=== PATIENT | female | born 1950 | race African-American/Black ===

== ENCOUNTER 2020-03-18 20:57 | Emergency (ER) | payer MEDICARE ==
[~2020-03-18] VITALS: Ht 165.1 cm; Wt 136.1 kg
[2020-03-18] MEDS ORDERED: ALBUTEROL SULFATE HFA 8GM INHALATION AEROSOL INH ONE (21:45)
--- NOTE | 2020-03-18 21:50 | Emergency Department Note ---
History of Present Illnes History of Present Illness Chief Complaint: COVID PUI History of Present Illness This is a 69 year old female WITH H/O COPD SECONDARY TO SECOND HAND SMOKE EXPOSURE PRESENTS TO ED WITH SOBAND PRODUCTIVE COUGH WITH YELLOW/WHITE SPUTUM X2-3 DAYS, SPO2 100% RA, RESP ARE EVEN AND UNLABORED. Historian: Patient Onset (how long ago): day(s) (3) Location: CHEST Quality: SOB, PRODUCTIVE COUGH Radiation: Reports non-radiation Severity: mild Onset quality: gradual Duration (how long): day(s) (3) Timing of current episode: constant Progression: unchanged Chronicity: recurrent Context: Denies recent illness, Denies recent surgery, Denies trauma/injury Relieving factors: none Exacerbating factors: none Past Medical/Family History Physician Review I have reviewed the patient's past medical and family history. Any updates have been documented here. Past Medical History Past Medical History: Hypertension, Diabetes, COPD Social History Smoking Cessation: Never Smoker Alcohol Use: None Any Illegal Drug Use: No Family History Family history of heart diseas: No Review of Systems Review of Systems Constitutional: Reports no symptoms EENTM: Reports no symptoms Cardiovascular: Reports no symptoms Respiratory: Reports as per HPI Gastrointestinal: Reports no symptoms Genitourinary: Reports no symptoms Musculoskeletal: Reports no symptoms Integumentary: Reports no symptoms Neurological: Reports no symptoms Psychological: Reports no symptoms Endocrine: Reports no symptoms Hematological/Lymphatic: Reports no symptoms Physical Exam Related Data Allergies: Coded Allergies: codeine (Verified Allergy, Intermediate, 03/18/20) Vital signs reviewed: Yes Physical Exam CONSTITUTIONAL Constitutional: Present well-developed, Present well-nourished, Present morbidly obese; Absent distressed HENT HENT: Present normocephalic, Present atraumatic, Present oropharynx clear/moist, Present nose normal HENT L/R: Present left ext ear normal, Present right ext ear normal EYES Eyes: Reports PERRL, Reports conjunctivae normal NECK Neck: Present ROM normal PULMONARY Pulmonary: Present effort normal, Present other (WHEEZING AT BASES BILATERAL); Absent respiratory distress, Absent rales, Absent rhonchi CARDIOVASCULAR Cardiovascular: Present regular rhythm, Present heart sounds normal, Present capillary refill normal, Present tachycardia (102) GASTROINTESTINAL Abdominal: Present soft, Present nontender, Present bowel sounds normal GENITOURINARY Genitourinary: Present exam deferred SKIN Skin: Present warm, Present dry MUSCULOSKELETAL Musculoskeletal: Present ROM normal NEUROLOGICAL Neurological: Present alert, Present oriented x 3, Present no gross motor or sensory deficits PSYCHOLOGICAL Psychological: Present mood/affect normal, Present judgement normal Results Laboratory Laboratory Laboratory Tests Test 03/18/20 21:57 White Blood Count 7.73 x10e3/uL (4.8-10.8) Red Blood Count 4.95 x10e6/uL (3.6-5.1) Hemoglobin 11.9 g/dL (12.0-16.0) Hematocrit 38.5 % (34.2-44.1) Mean Corpuscular Volume 77.8 fL (81-99) Mean Corpuscular Hemoglobin 24.0 pg (28-32) Mean Corpuscular Hemoglobin Concent 30.9 g/dL (31-35) Red Cell Distribution Width 18.1 % (11.7-14.4) Platelet Count 329 x10e3/uL (140-360) Neutrophils (%) (Auto) 50.1 % (38.7-80.0) Lymphocytes (%) (Auto) 28.5 % (18.0-39.1) Monocytes (%) (Auto) 13.6 % (4.4-11.3) Eosinophils (%) (Auto) 6.7 % (0.0-6.0) Basophils (%) (Auto) 0.6 % (0.0-1.0) Neutrophils # (Auto) 3.9 (2.1-6.9) Lymphocytes # (Auto) 2.2 (1.0-3.2) Monocytes # (Auto) 1.1 (0.2-0.8) Eosinophils # (Auto) 0.5 (0.0-0.4) Basophils # (Auto) 0.1 (0.0-0.1) Absolute Immature Granulocyte (auto 0.04 x10e3/uL (0-0.1) Sodium Level 141 mmol/L (136-145) Potassium Level 4.4 mmol/L (3.5-5.1) Chloride Level 103 mmol/L (98-107) Carbon Dioxide Level 26 mmol/L (22-29) Anion Gap 16.4 mmol/L (8-16) Blood Urea Nitrogen 18 mg/dL (7-26) Creatinine 1.15 mg/dL (0.57-1.11) Estimat Glomerular Filtration Rate 56 ML/MIN (60-) BUN/Creatinine Ratio 16 (6-25) Glucose Level 135 mg/dL (74-118) Calcium Level 9.4 mg/dL (8.4-10.2) Total Bilirubin 0.2 mg/dL (0.2-1.2) Aspartate Amino Transf (AST/SGOT) 16 IU/L (5-34) Alanine Aminotransferase (ALT/SGPT) 14 IU/L (0-55) Alkaline Phosphatase 97 IU/L (40-150) Creatine Kinase 178 IU/L (29-168) Creatine Kinase MB 1.00 ng/mL (0-5.0) Troponin I 0.011 ng/mL (0-0.300) B-Type Natriuretic Peptide < 10.0 pg/mL (0-100) Total Protein 8.1 g/dL (6.5-8.1) Albumin 4.0 g/dL (3.5-5.0) Globulin 4.1 g/dL (2.3-3.5) Albumin/Globulin Ratio 1.0 (0.8-2.0) Lab results reviewed: Yes Imaging Imaging results reviewed: Yes Impressions Procedure: [id number] DX/CHEST SINGLE (PORTABLE) Exam Date: Exam Time: REPORT STATUS: Signed EXAMINATION: CHEST SINGLE (PORTABLE) INDICATION: SOB, WHEEZING COMPARISON: None FINDINGS: Underpenetration mildly limits examination. Diffuse hazy densities projecting over the lungs likely secondary to superimposed soft tissue attenuation. The heart is enlarged. Prominence of the central pulmonary vasculature. Otherwise, the pulmonary vessels are nondistended. No consolidation. No pleural effusion. No pneumothorax. IMPRESSION: Cardiomegaly with pulmonary vascular congestion. No overt edema or consolidation. Signed by: Kaylan Shaffer MD on 03/18/2020 10:33 PM Dictated By: KAYLAN SHAFFER MD 32 Transcribed By: ADALGISA on 03/18/202232 COPY TO: MEHRDAD ANDERSON MD~ Procedures 12 Lead ECG Interpretation ECG Interpretation : ECG: ECG 1 Television Presenter: Interpreted by ED physician Date: Mar 18, 2020 Time: 22:03 Rhythm: sinus rhythm Rate: normal BPM: 97 QRS axis: normal ST segments normal: Yes T waves normal: Yes Other findings: no other findings Clinical Impression: normal ECG Assessment & Plan Medical Decision Making MDM PT WITH COPD WITH C/O PRODUCTIVE COUGH AND SOB FOR 3 DAYS CBC, CMP, EKG, CARDIAC ENZYMES, CXR, BNP ORDERED TO EVAL FOR MYOCARDIAL INFARCTION, PNEUMONIA, PULMONARY EDEMA, LEUKOCYTOSIS, ELECTROLYTE ABNORMALITY ALBUTEROL INH 2 PUFFS ORDERED Assessment & Plan Final Impression: (1) COPD (chronic obstructive pulmonary disease) (2) Bronchitis Medications in the ED Albuterol 2 gm ONCE ONCE INH ; Start 03/18/20 at 21:45; Stop 03/18/20 at 21:47; Status DC MEHRDAD ANDERSON MD Mar 18, 2020 21:50
[2020-03-18 22:15] LABS: BASOPHILS # (AUTO) 0.1 (0.0-0.1); BASOPHILS % 0.6 % (0.0-1.0); EOSINOPHILS # (AUTO) 0.5 (0.0-0.4); EOSINOPHILS % 6.7 % (0.0-6.0); HEMATOCRIT 38.5 % (34.2-44.1); HEMOGLOBIN 11.9 g/dL (12.0-16.0); LYMPHOCYTES # (AUTO) 2.2 (1.0-3.2); LYMPHOCYTES % 28.5 % (18.0-39.1); MEAN CORPUSCULAR HGB CONC 30.9 g/dL (31-35); MEAN CORPUSCULAR VOLUME 77.8 fL (81-99); MONOCYTES # (AUTO) 1.1 (0.2-0.8); MONOCYTES % 13.6 % (4.4-11.3); NEUTROPHILS # (AUTO) 3.9 (2.1-6.9); NEUTROPHILS % 50.1 % (38.7-80.0); PLATELET COUNT 329 x10e3/uL (140-360); RED BLOOD COUNT 4.95 x10e6/uL (3.6-5.1); RED CELL DISTRIBUTION WIDTH 18.1 % (11.7-14.4)
[2020-03-18 22:35] LABS: ANION GAP 16.4 mmol/L (8-16); CALCIUM 9.4 mg/dL (8.4-10.2); CREATININE, SERUM 1.15 mg/dL (0.57-1.11); POTASSIUM 4.4 mmol/L (3.5-5.1)
--- NOTE | 2020-03-18 22:36 | Diagnostic Imaging Report ---
EXAMINATION: CHEST SINGLE (PORTABLE) INDICATION: SOB, WHEEZING COMPARISON: None FINDINGS: Underpenetration mildly limits examination. Diffuse hazy densities projecting over the lungs likely secondary to superimposed soft tissue attenuation. The heart is enlarged. Prominence of the central pulmonary vasculature. Otherwise, the pulmonary vessels are nondistended. No consolidation. No pleural effusion. No pneumothorax. IMPRESSION: Cardiomegaly with pulmonary vascular congestion. No overt edema or consolidation. Signed by: Victor Hugo Juan MD on 03/18/2020 10:33 PM
== END 2020-03-19 00:15 | disposition home or self-care (01) ==
LOC: ER 21:47
DX: R05 Cough (principal); J44.9 Chronic obstructive pulmonary disease, unspecified; J40 Bronchitis, not specified as acute or chronic; I10 Essential (primary) hypertension; E11.9 Type 2 diabetes mellitus without complications
CPT/HCPCS: 36415; 71045; 80053; 82550; 82553; 83880; 84484; 85025; 93005; 94664; 99283

== ENCOUNTER 2020-06-09 15:49 | Emergency (ER) | payer MEDICARE ==
[~2020-06-09] VITALS: Ht 165.1 cm; Wt 158.8 kg
[2020-06-09 16:49] LABS: BASOPHILS % 0.4 % (0.0-1.0); EOSINOPHILS # (AUTO) 0.3 (0.0-0.4); EOSINOPHILS % 3.1 % (0.0-6.0); HEMATOCRIT 36.6 % (34.2-44.1); HEMOGLOBIN 11.3 g/dL (12.0-16.0); LYMPHOCYTES # (AUTO) 2.5 (1.0-3.2); LYMPHOCYTES % 27.4 % (18.0-39.1); MEAN CORPUSCULAR HEMOGLOBIN 23.6 pg (28-32); MEAN CORPUSCULAR HGB CONC 30.9 g/dL (31-35); MEAN CORPUSCULAR VOLUME 76.4 fL (81-99); MONOCYTES # (AUTO) 0.7 (0.2-0.8); MONOCYTES % 7.8 % (4.4-11.3); NEUTROPHILS # (AUTO) 5.4 (2.1-6.9); NEUTROPHILS % 60.6 % (38.7-80.0); PLATELET COUNT 336 x10e3/uL (140-360); RED BLOOD COUNT 4.79 x10e6/uL (3.6-5.1); RED CELL DISTRIBUTION WIDTH 18.9 % (11.7-14.4)
[2020-06-09 16:53] LABS: CLARITY,URINE SL CLOUDY (CLEAR); COLOR,URINE YELLOW (YELLOW); KETONES,URINE NEGATIVE (NEGATIVE); LEUKOCYTE ESTERASE ,URINE TRACE (NEGATIVE); NITRITE,URINE NEGATIVE (NEGATIVE); PROTEIN,URINE DIPSTICK NEGATIVE (NEGATIVE); URINE UROBILINOGEN 0.2 mg/dL (0.2 - 1)
[2020-06-09 17:04] LABS: BACTERIA,URINE MANY /HPF; EPITHELIAL CELLS,URINE MODERATE /LPF; RBC,URINE 0-5 /HPF (0-5)
[2020-06-09 17:08] LABS: ALANINE AMINOTRANSFERASE 15 IU/L (0-55); ALBUMIN 3.5 g/dL (3.5-5.0); ALBUMIN/GLOBULIN RATIO 0.7 (0.8-2.0); ALKALINE PHOSPHATASE 146 IU/L (40-150); ANION GAP 12.7 mmol/L (8-16); BLOOD UREA NITROGEN 13 mg/dL (7-26); BUN/CREATININE RATIO 13 (6-25); CALCIUM 9.1 mg/dL (8.4-10.2); CARBON DIOXIDE 29 mmol/L (22-29); CHLORIDE 99 mmol/L (98-107); CREATINE KINASE 125 IU/L (29-168); CREATININE, SERUM 0.97 mg/dL (0.57-1.11); EST GLOMERULAR FILTRATION RATE > 60 ML/MIN (60-); GLUCOSE 170 mg/dL (74-118); POTASSIUM 4.7 mmol/L (3.5-5.1); SODIUM 136 mmol/L (136-145)
[2020-06-09] MEDS ORDERED: HYDROCODONE/APAP 10MG-325MG TAB PO ONE (17:15)
[2020-06-09 19:32] VITALS: BP 104/56
== END 2020-06-09 20:30 | disposition home or self-care (01) ==
LOC: ER 18:03
DX: R10.32 Left lower quadrant pain (principal); M54.5 Low back pain; E11.65 Type 2 diabetes mellitus with hyperglycemia; I10 Essential (primary) hypertension; J44.9 Chronic obstructive pulmonary disease, unspecified; M06.9 Rheumatoid arthritis, unspecified; E66.01 Morbid (severe) obesity due to excess calories
CPT/HCPCS: 36415; 72131; 72192; 80053; 81001; 82550; 82553; 84484; 85025; 99284

== ENCOUNTER 2021-07-24 20:07 | Inpatient (IN) | payer MEDICARE ==
[~2021-07-24] VITALS: Ht 165.1 cm; Wt 133.8 kg
[2021-07-24] MEDS ORDERED: ASPIRIN 81 MG CHEW TAB PO ONE (21:00)
[2021-07-24 21:14] LABS: HEMATOCRIT 41.2 % (34.2-44.1); MEAN CORPUSCULAR HEMOGLOBIN 24.6 pg (28-32); MEAN CORPUSCULAR HGB CONC 31.6 g/dL (31-35); PLATELET COUNT 400 x10e3/uL (140-360); RED BLOOD COUNT 5.28 x10e6/uL (3.6-5.1); RED CELL DISTRIBUTION WIDTH 17.5 % (11.7-14.4)
[2021-07-24 21:27] LABS: ALBUMIN 2.8 g/dL (3.5-5.0); ALBUMIN/GLOBULIN RATIO 0.5 (0.8-2.0); CALCIUM 9.7 mg/dL (8.4-10.2); CREATININE, SERUM 1.06 mg/dL (0.57-1.11)
[2021-07-24] MEDS ORDERED: CEFTRIAXONE 1 GM in SODIUM CHLORIDE 0.9% 50ML 50 ML IV STA (21:38)
[2021-07-24] MEDS ORDERED: SODIUM CHLORIDE 0.9% 1000ML 1,000 ML IV STA (21:40)
[2021-07-24 21:44] LABS: B-TYPE NATRIURETIC PEPTIDE2 19.1 pg/mL (0-100)
[2021-07-24] MEDS ORDERED: DEXAMETHASONE SOD PHOS 10 MG/1 ML VIAL IV ONE (21:45)
[2021-07-24] MEDS ORDERED: ACETAMINOPHEN 325 MG TAB PO ONE (21:45)
[2021-07-24 21:47] LABS: CREATINE KINASE MB 1.3 ng/mL (0-5.0)
[2021-07-24 21:53] LABS: EOSINOPHILS % (MANUAL) 3 % (0-7); LYMPHOCYTES % (MANUAL) 24 % (19-48); MONOCYTES % (MANUAL) 23 % (3.4-9.0); NEUTROPHILS % (MANUAL) 49 % (40-74)
[2021-07-24 21:54] LABS: PLATELET ESTIMATE MODERATELY INCREASED; PLATELET MORPHOLOGY COMMENT NORMAL; RBC MORPHOLOGY COMMENT NORMAL
[2021-07-24 22:59] LABS: CLARITY,URINE CLOUDY (CLEAR); COLOR,URINE AMBER (YELLOW); KETONES,URINE TRACE (NEGATIVE); LEUKOCYTE ESTERASE ,URINE TRACE (NEGATIVE); NITRITE,URINE POSITIVE (NEGATIVE); PROTEIN,URINE DIPSTICK >=300 (NEGATIVE); URINE UROBILINOGEN >=8 mg/dL (0.2 - 1)
[2021-07-24 23:05] LABS: BACTERIA,URINE MANY /HPF; EPITHELIAL CELLS,URINE MODERATE /LPF
[2021-07-25] VITALS (10 sets, daily range): BP systolic 136–166; BP diastolic 59–93
[2021-07-25] MEDS: SODIUM CHLORIDE 0.9% 1000ML 1,000 ML IV SCH ×3 (02:43→17:37)
[2021-07-25 07:16] LABS: BASOPHILS % 0.2 % (0.0-1.0); HEMATOCRIT 39.1 % (34.2-44.1); HEMOGLOBIN 12.2 g/dL (12.0-16.0); LYMPHOCYTES # (AUTO) 1.3 (1.0-3.2); LYMPHOCYTES % 19.1 % (18.0-39.1); MEAN CORPUSCULAR HEMOGLOBIN 24.1 pg (28-32); MEAN CORPUSCULAR HGB CONC 31.2 g/dL (31-35); MEAN CORPUSCULAR VOLUME 77.3 fL (81-99); MONOCYTES # (AUTO) 0.1 (0.2-0.8); MONOCYTES % 1.8 % (4.4-11.3); NEUTROPHILS # (AUTO) 5.1 (2.1-6.9); NEUTROPHILS % 78.3 % (38.7-80.0); PLATELET COUNT 418 x10e3/uL (140-360); RED BLOOD COUNT 5.06 x10e6/uL (3.6-5.1); RED CELL DISTRIBUTION WIDTH 17.7 % (11.7-14.4)
[2021-07-25 07:35] LABS: ANION GAP 15.4 mmol/L (8-16); CALCIUM 9.2 mg/dL (8.4-10.2); CREATININE, SERUM 1.21 mg/dL (0.57-1.11); POTASSIUM 4.4 mmol/L (3.5-5.1)
[2021-07-25] MEDS ORDERED: DEXTROSE 50% SYRINGE 50 ML IV PRN ×2 (12:00→14:00)
[2021-07-25] MEDS: INSULIN REGULAR, HUMAN 100 UNIT/1 ML SQ SCH ×2 (13:24→21:22)
[2021-07-25] MEDS ORDERED: LISINOPRIL 10 MG TAB PO SCH (14:00)
[2021-07-25] MEDS ORDERED: REMDESIVIR 100MG 200 MG in SODIUM CHLORIDE 0.9% 100 ML IV ONE (14:15)
[2021-07-25] MEDS ORDERED: ACETAMINOPHEN 325 MG TAB PO PRN (15:30)
[2021-07-25 15:38] LABS: CREATINE KINASE MB 2.1 ng/mL (0-5.0)
[2021-07-25] MEDS: INSULIN LISPRO 100 UNIT/1 ML 3ML VIAL SQ SCH ×2 (17:00→21:00)
[2021-07-25] MEDS: RIVAROXABAN 20 MG TABLET PO SCH (17:37)
[2021-07-25] MEDS: ASCORBIC ACID 500 MG TAB PO SCH (17:37)
[2021-07-25] MEDS ORDERED: ALBUTEROL SULFATE HFA 8GM INHALATION AEROSOL INH PRN (17:45)
[2021-07-25] MEDS ORDERED: MAGNESIUM HYDROXIDE 30 ML UDC PO PRN (17:45)
[2021-07-25] MEDS ORDERED: NEURONTIN300 MG PO (20:32)
[2021-07-25] MEDS: GABAPENTIN 300 MG CAP PO SCH (21:20)
[2021-07-26] VITALS (8 sets, daily range): BP systolic 157–194; BP diastolic 71–89
[2021-07-26] MEDS ORDERED: METOPROLOL TART25 MG PO (04:24)
[2021-07-26] MEDS ORDERED: FAMOTIDINE20 MG PO (04:24)
[2021-07-26] MEDS ORDERED: BUSPIRONE HCL5 MG PO (04:24)
[2021-07-26] MEDS ORDERED: NITROGLYCERIN0.4 MG SL (04:24)
[2021-07-26] MEDS ORDERED: ATORVASTATIN CA20 MG PO (04:24)
[2021-07-26] MEDS ORDERED: FUROSEMIDE40 MG PO (04:24)
[2021-07-26] MEDS ORDERED: ALBUTEROL0.63 MG/3 NEB (04:24)
[2021-07-26] MEDS ORDERED: BREO ELLIPTA 11 EACH INH (04:24)
[2021-07-26] MEDS ORDERED: AMLODIPINE BESY10 MG PO (04:24)
[2021-07-26] MEDS ORDERED: LISINOPRIL10 MG PO (04:24)
[2021-07-26] MEDS ORDERED: POTASSIUM CHLO10 ME1 PO (04:24)
[2021-07-26 06:12] LABS: BASOPHILS % 0.1 % (0.0-1.0); HEMATOCRIT 37.8 % (34.2-44.1); HEMOGLOBIN 11.9 g/dL (12.0-16.0); LYMPHOCYTES # (AUTO) 1.5 (1.0-3.2); LYMPHOCYTES % 10.6 % (18.0-39.1); MEAN CORPUSCULAR HEMOGLOBIN 24.2 pg (28-32); MEAN CORPUSCULAR HGB CONC 31.5 g/dL (31-35); MONOCYTES # (AUTO) 0.9 (0.2-0.8); MONOCYTES % 6.3 % (4.4-11.3); NEUTROPHILS % 82.3 % (38.7-80.0); PLATELET COUNT 458 x10e3/uL (140-360); RED BLOOD COUNT 4.91 x10e6/uL (3.6-5.1); RED CELL DISTRIBUTION WIDTH 17.4 % (11.7-14.4)
[2021-07-26 06:36] LABS: ALBUMIN 2.4 g/dL (3.5-5.0); ALBUMIN/GLOBULIN RATIO 0.5 (0.8-2.0); ANION GAP 16.2 mmol/L (8-16); CALCIUM 8.7 mg/dL (8.4-10.2); CREATININE, SERUM 1.07 mg/dL (0.57-1.11); POTASSIUM 4.2 mmol/L (3.5-5.1)
[2021-07-26] MEDS: DEXAMETHASONE 4 MG TAB PO SCH (10:09)
[2021-07-26] MEDS: AZITHROMYCIN 250 MG TAB PO SCH (10:10)
[2021-07-26] MEDS: ZINC SULFATE 50 MG CAP PO SCH (10:10)
[2021-07-26] MEDS: ASCORBIC ACID 500 MG TAB PO SCH ×2 (10:10→16:48)
[2021-07-26] MEDS: GABAPENTIN 300 MG CAP PO SCH ×3 (10:10→20:34)
[2021-07-26] MEDS: DOCUSATE SODIUM 100 MG CAP PO SCH (10:10)
[2021-07-26] MEDS: INSULIN LISPRO 100 UNIT/1 ML 3ML VIAL SQ SCH ×4 (10:10→20:35)
[2021-07-26] MEDS: CEFTRIAXONE 1 GM in SODIUM CHLORIDE 0.9% 50ML 50 ML IV SCH (10:10)
[2021-07-26] MEDS: CHLORTHALIDONE 25 MG TAB PO SCH (12:19)
[2021-07-26] MEDS: LISINOPRIL 20 MG TAB PO SCH ×2 (12:19→16:48)
[2021-07-26] MEDS: REMDESIVIR 100MG 100 MG in SODIUM CHLORIDE 0.9% 100 ML IV SCH (13:43)
[2021-07-26] MEDS: SODIUM CHLORIDE 0.9% 1000ML 1,000 ML IV SCH (13:43)
[2021-07-26] MEDS: RIVAROXABAN 20 MG TABLET PO SCH (16:48)
[2021-07-26] MEDS ORDERED: ENOXAPARIN SOD INJ 40 MG/0.4 ML SYR SC SCH (17:00)
[2021-07-26] MEDS ORDERED: METOPROLOL TARTRATE 25 MG TAB PO ONE (20:45)
[2021-07-26] MEDS ORDERED: AMLODIPINE BESYLATE 10 MG TAB PO ONE (20:45)
[2021-07-27] VITALS (8 sets, daily range): BP systolic 149–176; BP diastolic 68–89
[2021-07-27 05:01] LABS: BASOPHILS % 0.2 % (0.0-1.0); HEMATOCRIT 37.3 % (34.2-44.1); HEMOGLOBIN 11.9 g/dL (12.0-16.0); LYMPHOCYTES # (AUTO) 1.6 (1.0-3.2); LYMPHOCYTES % 12.1 % (18.0-39.1); MEAN CORPUSCULAR HEMOGLOBIN 24.5 pg (28-32); MEAN CORPUSCULAR HGB CONC 31.9 g/dL (31-35); MEAN CORPUSCULAR VOLUME 76.9 fL (81-99); MONOCYTES # (AUTO) 1.1 (0.2-0.8); MONOCYTES % 8.4 % (4.4-11.3); NEUTROPHILS # (AUTO) 10.2 (2.1-6.9); NEUTROPHILS % 78.5 % (38.7-80.0); PLATELET COUNT 471 x10e3/uL (140-360); RED BLOOD COUNT 4.85 x10e6/uL (3.6-5.1); RED CELL DISTRIBUTION WIDTH 17.6 % (11.7-14.4)
[2021-07-27 05:27] LABS: ALBUMIN 2.5 g/dL (3.5-5.0); ALBUMIN/GLOBULIN RATIO 0.5 (0.8-2.0); ANION GAP 12.5 mmol/L (8-16); CREATININE, SERUM 0.94 mg/dL (0.57-1.11); POTASSIUM 4.5 mmol/L (3.5-5.1)
[2021-07-27] MEDS: INSULIN LISPRO 100 UNIT/1 ML 3ML VIAL SQ SCH ×4 (07:30→20:42)
[2021-07-27] MEDS: DEXAMETHASONE 4 MG TAB PO SCH (10:33)
[2021-07-27] MEDS: DOCUSATE SODIUM 100 MG CAP PO SCH (10:34)
[2021-07-27] MEDS: AMLODIPINE BESYLATE 10 MG TAB PO SCH (10:34)
[2021-07-27] MEDS: METOPROLOL TARTRATE 25 MG TAB PO SCH (10:34)
[2021-07-27] MEDS: CHLORTHALIDONE 25 MG TAB PO SCH (10:34)
[2021-07-27] MEDS: GABAPENTIN 300 MG CAP PO SCH ×3 (10:34→19:58)
[2021-07-27] MEDS: CEFTRIAXONE 1 GM in SODIUM CHLORIDE 0.9% 50ML 50 ML IV SCH (10:34)
[2021-07-27] MEDS: SODIUM CHLORIDE 0.9% 1000ML 1,000 ML IV SCH ×2 (10:35→22:00)
[2021-07-27] MEDS: ZINC SULFATE 50 MG CAP PO SCH (10:35)
[2021-07-27] MEDS: LISINOPRIL 20 MG TAB PO SCH ×2 (10:35→17:58)
[2021-07-27] MEDS: AZITHROMYCIN 250 MG TAB PO SCH (10:35)
[2021-07-27] MEDS: ASCORBIC ACID 500 MG TAB PO SCH ×2 (10:35→17:58)
[2021-07-27] MEDS: REMDESIVIR 100MG 100 MG in SODIUM CHLORIDE 0.9% 100 ML IV SCH (14:05)
[2021-07-27] MEDS: ISOSORBIDE DINITRATE 20 MG TAB PO SCH (17:58)
[2021-07-27] MEDS: RIVAROXABAN 20 MG TABLET PO SCH (17:58)
[2021-07-27] MEDS ORDERED: TERAZOSIN HCL 1 MG CAP PO SCH (21:00)
[2021-07-28] VITALS (7 sets, daily range): BP systolic 134–151; BP diastolic 61–77
[2021-07-28 05:28] LABS: ANION GAP 13.7 mmol/L (8-16); CALCIUM 8.6 mg/dL (8.4-10.2); CREATININE, SERUM 1.05 mg/dL (0.57-1.11); POTASSIUM 4.7 mmol/L (3.5-5.1)
[2021-07-28] MEDS: CHLORTHALIDONE 25 MG TAB PO SCH (09:37)
[2021-07-28] MEDS: DOCUSATE SODIUM 100 MG CAP PO SCH (09:37)
[2021-07-28] MEDS: METOPROLOL TARTRATE 25 MG TAB PO SCH ×3 (09:38→21:25)
[2021-07-28] MEDS: ISOSORBIDE DINITRATE 20 MG TAB PO SCH ×2 (09:38→17:24)
[2021-07-28] MEDS: GABAPENTIN 300 MG CAP PO SCH ×3 (09:38→21:24)
[2021-07-28] MEDS: ASCORBIC ACID 500 MG TAB PO SCH ×2 (09:39→17:24)
[2021-07-28] MEDS: ZINC SULFATE 50 MG CAP PO SCH (09:39)
[2021-07-28] MEDS: DEXAMETHASONE 4 MG TAB PO SCH (09:39)
[2021-07-28] MEDS: AMLODIPINE BESYLATE 10 MG TAB PO SCH (09:39)
[2021-07-28] MEDS: LISINOPRIL 20 MG TAB PO SCH ×2 (09:39→17:24)
[2021-07-28] MEDS: INSULIN LISPRO 100 UNIT/1 ML 3ML VIAL SQ SCH ×4 (10:13→21:23)
[2021-07-28] MEDS: RIVAROXABAN 20 MG TABLET PO SCH (17:24)
[2021-07-29] VITALS (7 sets, daily range): BP systolic 127–174; BP diastolic 63–76
[2021-07-29] MEDS: CHLORTHALIDONE 25 MG TAB PO SCH (08:25)
[2021-07-29] MEDS: DOCUSATE SODIUM 100 MG CAP PO SCH (08:25)
[2021-07-29] MEDS: METOPROLOL TARTRATE 25 MG TAB PO SCH ×2 (08:26→21:32)
[2021-07-29] MEDS: ISOSORBIDE DINITRATE 20 MG TAB PO SCH ×2 (08:26→17:48)
[2021-07-29] MEDS: AMLODIPINE BESYLATE 10 MG TAB PO SCH (08:27)
[2021-07-29] MEDS: GABAPENTIN 300 MG CAP PO SCH ×3 (08:27→21:32)
[2021-07-29] MEDS: DEXAMETHASONE 4 MG TAB PO SCH (08:28)
[2021-07-29] MEDS: ASCORBIC ACID 500 MG TAB PO SCH ×2 (08:28→17:49)
[2021-07-29] MEDS: ZINC SULFATE 50 MG CAP PO SCH (08:28)
[2021-07-29] MEDS: LISINOPRIL 20 MG TAB PO SCH ×2 (08:28→17:48)
[2021-07-29] MEDS: INSULIN LISPRO 100 UNIT/1 ML 3ML VIAL SQ SCH ×4 (09:35→21:33)
[2021-07-29] MEDS: RIVAROXABAN 20 MG TABLET PO SCH (17:49)
[2021-07-30] VITALS (9 sets, daily range): BP systolic 129–165; BP diastolic 65–80
[2021-07-30 07:21] LABS: BASOPHILS % 0.1 % (0.0-1.0); EOSINOPHILS % 0.2 % (0.0-6.0); HEMATOCRIT 36.1 % (34.2-44.1); HEMOGLOBIN 11.5 g/dL (12.0-16.0); LYMPHOCYTES % 16.5 % (18.0-39.1); MEAN CORPUSCULAR HGB CONC 31.9 g/dL (31-35); MEAN CORPUSCULAR VOLUME 75.4 fL (81-99); MONOCYTES # (AUTO) 1.4 (0.2-0.8); MONOCYTES % 11.3 % (4.4-11.3); NEUTROPHILS # (AUTO) 8.5 (2.1-6.9); NEUTROPHILS % 70.3 % (38.7-80.0); PLATELET COUNT 514 x10e3/uL (140-360); RED BLOOD COUNT 4.79 x10e6/uL (3.6-5.1); RED CELL DISTRIBUTION WIDTH 17.2 % (11.7-14.4)
[2021-07-30 07:47] LABS: ANION GAP 13.7 mmol/L (8-16); CALCIUM 9.5 mg/dL (8.4-10.2); CREATININE, SERUM 0.99 mg/dL (0.57-1.11); POTASSIUM 4.7 mmol/L (3.5-5.1)
[2021-07-30] MEDS: INSULIN LISPRO 100 UNIT/1 ML 3ML VIAL SQ SCH ×4 (08:51→20:52)
[2021-07-30] MEDS: DOCUSATE SODIUM 100 MG CAP PO SCH (08:51)
[2021-07-30] MEDS: ISOSORBIDE DINITRATE 20 MG TAB PO SCH ×2 (08:52→17:50)
[2021-07-30] MEDS: CHLORTHALIDONE 25 MG TAB PO SCH (08:52)
[2021-07-30] MEDS: METOPROLOL TARTRATE 25 MG TAB PO SCH ×2 (08:52→20:56)
[2021-07-30] MEDS: GABAPENTIN 300 MG CAP PO SCH ×3 (08:56→20:56)
[2021-07-30] MEDS: LISINOPRIL 20 MG TAB PO SCH ×2 (08:57→17:51)
[2021-07-30] MEDS: ZINC SULFATE 50 MG CAP PO SCH (08:57)
[2021-07-30] MEDS: ASCORBIC ACID 500 MG TAB PO SCH ×2 (08:57→17:51)
[2021-07-30] MEDS: AMLODIPINE BESYLATE 10 MG TAB PO SCH (08:57)
[2021-07-30] MEDS: DEXAMETHASONE 4 MG TAB PO SCH (08:57)
[2021-07-30] MEDS: RIVAROXABAN 20 MG TABLET PO SCH (17:51)
[2021-07-31] VITALS (7 sets, daily range): BP systolic 123–160; BP diastolic 60–91
[2021-07-31] MEDS ORDERED: HYGROTON25 MG PO (10:08)
[2021-07-31] MEDS ORDERED: NORVASC10 MG PO (10:08)
[2021-07-31] MEDS ORDERED: ISORDIL20 MG PO (10:08)
[2021-07-31] MEDS ORDERED: XARELTO10 MG PO (10:08)
[2021-07-31] MEDS: DOCUSATE SODIUM 100 MG CAP PO SCH (10:28)
[2021-07-31] MEDS: CHLORTHALIDONE 25 MG TAB PO SCH (10:29)
[2021-07-31] MEDS: METOPROLOL TARTRATE 25 MG TAB PO SCH (10:30)
[2021-07-31] MEDS: ISOSORBIDE DINITRATE 20 MG TAB PO SCH (10:30)
[2021-07-31] MEDS: GABAPENTIN 300 MG CAP PO SCH (10:30)
[2021-07-31] MEDS: ASCORBIC ACID 500 MG TAB PO SCH (10:31)
[2021-07-31] MEDS: LISINOPRIL 20 MG TAB PO SCH (10:31)
[2021-07-31] MEDS: ZINC SULFATE 50 MG CAP PO SCH (10:31)
[2021-07-31] MEDS: AMLODIPINE BESYLATE 10 MG TAB PO SCH (10:31)
[2021-07-31] MEDS: DEXAMETHASONE 4 MG TAB PO SCH (10:31)
== END 2021-07-31 12:15 | disposition home or self-care (01) | DRG 177 ==
LOC: ER 20:20 → ERHOLD 23:16 → IMCU 07-25 01:21
PROVIDERS: ADMIT Internal Medicine; ATTEND Internal Medicine
PROC: 3E0333Z Introduction of Anti-inflammatory into Peripheral Vein, Percutaneous Approach (ICD-10-PCS; 2021-07-24)
PROC: 02HV33Z Insertion of Infusion Device into Superior Vena Cava, Percutaneous Approach (ICD-10-PCS; principal; 2021-07-25)
PROC: XW043E5 Introduction of Remdesivir Anti-infective into Central Vein, Percutaneous Approach, New Technology Group 5 (ICD-10-PCS; 2021-07-25)
DX: U07.1 COVID-19 (principal); J12.82 Pneumonia due to coronavirus disease 2019; J96.01 Acute respiratory failure with hypoxia; Z68.42 Body mass index [BMI] 45.0-49.9, adult; R09.02 Hypoxemia; G47.33 Obstructive sleep apnea (adult) (pediatric); E66.01 Morbid (severe) obesity due to excess calories; Z88.5 Allergy status to narcotic agent; Z86.718 Personal history of other venous thrombosis and embolism; Z86.711 Personal history of pulmonary embolism; Z82.49 Family history of ischemic heart disease and other diseases of the circulatory system; Z79.4 Long term (current) use of insulin; E11.22 Type 2 diabetes mellitus with diabetic chronic kidney disease; I12.9 Hypertensive chronic kidney disease with stage 1 through stage 4 chronic kidney disease, or unspecified chronic kidney disease; N18.9 Chronic kidney disease, unspecified; Z79.01 Long term (current) use of anticoagulants; Z77.22 Contact with and (suspected) exposure to environmental tobacco smoke (acute) (chronic)
CPT/HCPCS: 36415; 36569; 71045; 71250; 80048; 80053; 81001; 82550; 82553; 82948; 83605; 83880; 84484; 85007; 85025; 85027; 87040; 93005; 94799; 96372; 97139; 99251; 99284; J0248; J0456; J0696; J1100; J1817; J7030; J7050; U0002